=== PATIENT | male | born 1940 | race Caucasian/White ===

== ENCOUNTER 2020-12-06 11:03 | Day surgery (SDC) | payer MEDICARE ==
[~2020-12-06] VITALS: Ht 180.3 cm; Wt 80.8 kg
[~2020-12-06 11:03] MED LIST: ASPI-496 PO; ATEN25TA PO; BISA10SU4 PR; CEFU500T PO; CHOL2000 PO; CLOP75TA PO; DOXY100T PO; GLIM1TAB7 PO; HEPA50002 SQ; LISI-167 PO; LISI-170 PO; ONDA4TAB13 PO; PIPE2.255 IV; SIMV20TA19 PO; VERA120T13 PO; calcium; magnesium
[2020-12-06 11:53] VITALS: BP 125/69
[2020-12-06] MEDS ORDERED: NALOXONE 1 MG/ML, 2ML ONE (13:35)
[2020-12-06] MEDS ORDERED: MIDAZOLAM 1 MG/ML, 5ML ONE (13:35)
[2020-12-06] MEDS ORDERED: FLUMAZENIL 0.1 MG/1 ML, 5ML ONE (13:35)
[2020-12-06] MEDS ORDERED: FENTANYL PF 100 MCG/2ML ONE (13:35)
[2020-12-06] MEDS ORDERED: VISIPAQUE 270 MG/ML, 50ML BOTTLE ONE (14:57)
== END 2020-12-06 15:15 | disposition home or self-care (01) ==
LOC: OUT 11:03
PROVIDERS: ATTEND Internal Medicine Infectious Disease
DX: T83.89XA Other specified complication of genitourinary prosthetic devices, implants and grafts, initial encounter (principal); N10 Acute pyelonephritis; N99.511 Cystostomy infection; Y83.8 Other surgical procedures as the cause of abnormal reaction of the patient, or of later complication, without mention of misadventure at the time of the procedure; I10 Essential (primary) hypertension; N17.9 Acute kidney failure, unspecified; E11.9 Type 2 diabetes mellitus without complications; G47.30 Sleep apnea, unspecified; Z72.89 Other problems related to lifestyle; Z79.899 Other long term (current) drug therapy; Z79.84 Long term (current) use of oral hypoglycemic drugs; Z98.890 Other specified postprocedural states; Z85.46 Personal history of malignant neoplasm of prostate
CPT/HCPCS: 50435; 51710; 75984; 99156; 99157; C1729; C1769; J2250; J3010; Q9966; J2310

== ENCOUNTER 2021-04-10 20:48 | Inpatient (IN) | payer MEDICARE ==
[~2021-04-10] VITALS: Ht 180.3 cm; Wt 81.4 kg
--- NOTE | 2021-04-10 21:15 | NUR ---
PT C/O OF POSSIBLE UTI FROM SUPRAPUBIC CATHTER. WAS PUT ON CEFDINIR FROM . STATES FEELING BETTER BUT THEN BEGAN TO FELL WORSE. PT NOTED CLOUDY URINE AND GREENISH SCUM SO HE CALLED INFECTCIOUS DISEASE AND TOOK LABS AND WAS TOLD TO COME TO ED AND GET IV INFUSION, PT ATTACHED TO MONITORS, VSS. PT IN NAD. NBED IN LOW POSITIONO. CALL LIGHT WITHIN REACH. RAILS ENGAGED. WCTM.
--- NOTE | 2021-04-10 21:23 | NUR ---
PT GIVEN WARM BLANKETS
[2021-04-10] MEDS ORDERED: SODIUM CHLORIDE 0.9% 1,000ML IVBOLUS ONE (22:00)
[2021-04-10 22:09] LABS: BASOPHILS % (AUTO) 1 % (0-1); EOSINOPHILS % (AUTO) 3 % (1-7); LYMPHOCYTES % (AUTO) 19 % (22-44); MEAN CORPUSCULAR HEMOGLOBIN 30.2 pg (27.5-34.5); MEAN CORPUSCULAR HGB CONC 34.6 g/dL (33.2-36.2); MEAN PLATELET VOLUME 7.7 fL (7.4-10.4); MONOCYTES % (AUTO) 10 % (2-9); NEUTROPHILS % (AUTO) 67 % (42-75); PLATELET COUNT 522 x10^3/uL (130-400); RED BLOOD COUNT 3.56 x10^6/uL (4.38-5.82)
[2021-04-10 22:16] LABS: MD NO
[2021-04-10 22:18] LABS: ALBUMIN 2.9 g/dL (3.4-5.0); ANION GAP 9 mmol/L (5-15); CALCIUM 8.6 mg/dL (8.5-10.1); CHLORIDE 104 mmol/L (98-107); CREATININE 2.71 mg/dL (0.7-1.3)
[2021-04-10 22:25] LABS: MICROSCOPIC INDICATED
[2021-04-10] MEDS ORDERED: CYSTEX PO (22:51)
[2021-04-10] MEDS ORDERED: MULTIVITAMIN PO (22:53)
[2021-04-10] MEDS ORDERED: VITAMIN D PO (22:53)
[2021-04-10] MEDS ORDERED: MAGN250T8 PO (22:53)
[2021-04-10] MEDS ORDERED: ATOR10TA9 PO (22:53)
[2021-04-10] MEDS ORDERED: CRANBERRY PO (22:53)
--- NOTE | 2021-04-10 22:53 | NUR ---
PT MEDICATED PER MAR, NAD, RESTING ON GURNEY, APPEARS COMFORTABLE, DENIES ADDITIONAL QUESTIONS OR NEEDS AT THIS TIME. NO CHANGE IN CONDITION, VSS, BED IN LOWEST, RAILS ENGAGED, CALL LIGHT ON LAP, WCTM.
[2021-04-10] MEDS ORDERED: PIPERACILLIN/TAZO 3.375 GM in DEXTROSE 5% 50 ML IVPB ONE (23:00)
[2021-04-10] MEDS ORDERED: POLYETHYLENE GLYCOL 17 GM PACKET PO PRN (23:30)
[2021-04-10] MEDS ORDERED: ACETAMINOPHEN 325 MG TABLET PO PRN (23:30)
[2021-04-10] MEDS ORDERED: ONDANSETRON ODT 4 MG PO PRN (23:30)
[2021-04-10] MEDS ORDERED: BISACODYL 10 MG SUPP PR PRN (23:30)
--- NOTE | 2021-04-10 23:44 | NUR ---
GAVE REPORT TO MARTY MARSH
--- NOTE | 2021-04-11 00:10 | NUR ---
CLAY MOLDER TRANFERRING PT TO FLOOR. PT CONDITION UNCHANGED. PT IN NAD.
[2021-04-11 00:27] VITALS: BP 143/75
[2021-04-11] MEDS: SODIUM CHLORIDE 0.9% 1,000 ML IV SCH ×2 (00:32→12:50)
[2021-04-11 05:51] LABS: BASOPHILS % (AUTO) 1 % (0-1); EOSINOPHILS % (AUTO) 3 % (1-7); LYMPHOCYTES % (AUTO) 16 % (22-44); MEAN CORPUSCULAR HEMOGLOBIN 30.7 pg (27.5-34.5); MEAN CORPUSCULAR HGB CONC 35.5 g/dL (33.2-36.2); MEAN PLATELET VOLUME 7.6 fL (7.4-10.4); MONOCYTES % (AUTO) 12 % (2-9); NEUTROPHILS % (AUTO) 69 % (42-75); PLATELET COUNT 465 x10^3/uL (130-400); RED BLOOD COUNT 3.25 x10^6/uL (4.38-5.82); RED CELL DISTRIBUTION WIDTH 12.7 % (9.4-14.8)
[2021-04-11 05:56] LABS: CHLORIDE 108 mmol/L (98-107)
[2021-04-11 06:06] LABS: ANION GAP 8 mmol/L (5-15); CALCIUM 8.3 mg/dL (8.5-10.1); CREATININE 2.52 mg/dL (0.7-1.3)
[2021-04-11 06:13] LABS: MD NO
[2021-04-11 07:30] VITALS: BP 160/70
[2021-04-11] MEDS ORDERED: VERAPAMIL ER 120MG TABLET.ER ONE (07:48)
[2021-04-11] MEDS: SENNA/DOCUSATE TABLET PO SCH (07:52)
[2021-04-11] MEDS: MULTIVITAMIN 1 TABLET PO SCH (07:56)
[2021-04-11] MEDS: VERAPAMIL ER 240MG TABLET.ER PO SCH (07:56)
[2021-04-11] MEDS: MAGNESIUM OXIDE 400 MG TABLET PO SCH (07:56)
[2021-04-11] MEDS: PIPERACILLIN/TAZO 2.25 GM in SODIUM CHLORIDE 0.9% 50 ML IV SCH ×2 (07:57→15:00)
[2021-04-11 13:41] VITALS: BP 109/57
[2021-04-11 19:40] VITALS: BP 140/68
[2021-04-11] MEDS: ATORVASTATIN 20 MG TABLET PO SCH (21:17)
[2021-04-11] MEDS: PIPERACILLIN/TAZO 2.25 GM in DEXTROSE 5% 50 ML IV SCH (23:35)
[2021-04-12 00:58] VITALS: BP 130/67
[2021-04-12] MEDS: SODIUM CHLORIDE 0.9% 1,000 ML IV SCH ×2 (03:09→18:33)
[2021-04-12 06:07] LABS: BASOPHILS % (AUTO) 1 % (0-1); EOSINOPHILS % (AUTO) 4 % (1-7); LYMPHOCYTES % (AUTO) 19 % (22-44); MEAN CORPUSCULAR HEMOGLOBIN 30.8 pg (27.5-34.5); MEAN CORPUSCULAR HGB CONC 35.2 g/dL (33.2-36.2); MEAN PLATELET VOLUME 7.9 fL (7.4-10.4); MONOCYTES % (AUTO) 9 % (2-9); NEUTROPHILS % (AUTO) 68 % (42-75); PLATELET COUNT 524 x10^3/uL (130-400); RED BLOOD COUNT 3.61 x10^6/uL (4.38-5.82)
[2021-04-12 06:11] LABS: MD NO
[2021-04-12 06:18] LABS: ANION GAP 4 mmol/L (5-15); CALCIUM 8.9 mg/dL (8.5-10.1); CHLORIDE 108 mmol/L (98-107); CREATININE 2.65 mg/dL (0.7-1.3)
[2021-04-12 07:09] VITALS: BP 153/71
[2021-04-12] MEDS: PIPERACILLIN/TAZO 2.25 GM in DEXTROSE 5% 50 ML IV SCH ×3 (07:28→23:30)
[2021-04-12] MEDS: SENNA/DOCUSATE TABLET PO SCH (09:00)
[2021-04-12] MEDS: MULTIVITAMIN 1 TABLET PO SCH (10:34)
[2021-04-12] MEDS: VERAPAMIL ER 240MG TABLET.ER PO SCH (10:34)
[2021-04-12] MEDS: MAGNESIUM OXIDE 400 MG TABLET PO SCH (10:34)
[2021-04-12 14:12] VITALS: BP 112/58
[2021-04-12 16:03] VITALS: BP 172/82
[2021-04-12 17:11] LABS: % IRON SATURATION 23 % (20-55); IRON LEVEL 46 mcg/dL (65-175); TOTAL IRON BINDING CAPACITY 196 mcg/dL (250-450)
[2021-04-12 19:56] VITALS: BP 144/70
[2021-04-12] MEDS: ATORVASTATIN 20 MG TABLET PO SCH (20:30)
[2021-04-13 00:37] VITALS: BP 146/68
[2021-04-13 07:15] VITALS: BP 155/70
[2021-04-13] MEDS: PIPERACILLIN/TAZO 2.25 GM in DEXTROSE 5% 50 ML IV SCH ×3 (07:19→23:06)
[2021-04-13] MEDS: MULTIVITAMIN 1 TABLET PO SCH (09:35)
[2021-04-13] MEDS: SODIUM CHLORIDE 0.9% 1,000 ML IV SCH ×2 (09:35→23:06)
[2021-04-13] MEDS: MAGNESIUM OXIDE 400 MG TABLET PO SCH (09:35)
[2021-04-13] MEDS: SENNA/DOCUSATE TABLET PO SCH (09:35)
[2021-04-13] MEDS: VERAPAMIL ER 240MG TABLET.ER PO SCH (09:47)
[2021-04-13 12:54] VITALS: BP 129/68
[2021-04-13 19:42] VITALS: BP 132/76
[2021-04-13] MEDS: ATORVASTATIN 20 MG TABLET PO SCH (19:45)
[2021-04-14 01:15] VITALS: BP 137/80
[2021-04-14] MEDS: PIPERACILLIN/TAZO 2.25 GM in DEXTROSE 5% 50 ML IV SCH ×3 (07:17→22:59)
[2021-04-14 08:23] VITALS: BP 138/68
[2021-04-14] MEDS: VERAPAMIL ER 240MG TABLET.ER PO SCH (08:40)
[2021-04-14] MEDS: MULTIVITAMIN 1 TABLET PO SCH (08:40)
[2021-04-14] MEDS: MAGNESIUM OXIDE 400 MG TABLET PO SCH (08:41)
[2021-04-14] MEDS: SENNA/DOCUSATE TABLET PO SCH (08:42)
[2021-04-14 12:31] VITALS: BP 147/76
[2021-04-14] MEDS: SODIUM CHLORIDE 0.9% 1,000 ML IV SCH (13:01)
[2021-04-14] MEDS ORDERED: VISIPAQUE 270 MG/ML, 50ML BOTTLE ONE (16:19)
[2021-04-14 18:44] VITALS: BP 146/55
[2021-04-14] MEDS: ATORVASTATIN 20 MG TABLET PO SCH (20:42)
[2021-04-15 03:23] VITALS: BP 156/70
[2021-04-15] MEDS: SODIUM CHLORIDE 0.9% 1,000 ML IV SCH ×2 (04:12→14:53)
[2021-04-15 07:04] VITALS: BP 161/75
[2021-04-15 07:39] VITALS: BP 145/64
[2021-04-15] MEDS: PIPERACILLIN/TAZO 2.25 GM in DEXTROSE 5% 50 ML IV SCH ×2 (07:50→14:54)
[2021-04-15] MEDS: MULTIVITAMIN 1 TABLET PO SCH (08:54)
[2021-04-15] MEDS: MAGNESIUM OXIDE 400 MG TABLET PO SCH (08:55)
[2021-04-15] MEDS: VERAPAMIL ER 240MG TABLET.ER PO SCH (08:56)
[2021-04-15] MEDS: SENNA/DOCUSATE TABLET PO SCH (08:56)
[2021-04-15 12:50] VITALS: BP 146/68
[2021-04-15] MEDS ORDERED: PIPE2.255 IV (15:57)
== END 2021-04-15 17:17 | DRG 699 ==
LOC: ED 23:32 → EDIP 23:44 → 3N 04-11 00:12
PROVIDERS: ADMIT Family Medicine; ATTEND Internal Medicine
PROC: 0T9B70Z Drainage of Bladder with Drainage Device, Via Natural or Artificial Opening (ICD-10-PCS; principal; 2021-04-10)
PROC: 02HV33Z Insertion of Infusion Device into Superior Vena Cava, Percutaneous Approach (ICD-10-PCS; 2021-04-14)
PROC: B548ZZA Ultrasonography of Superior Vena Cava, Guidance (ICD-10-PCS; 2021-04-14)
PROC: 5A09357 Assistance with Respiratory Ventilation, Less than 24 Consecutive Hours, Continuous Positive Airway Pressure (ICD-10-PCS; 2021-04-14)
DX: T83.510A Infection and inflammatory reaction due to cystostomy catheter, initial encounter (principal); N18.4 Chronic kidney disease, stage 4 (severe); N10 Acute pyelonephritis; Z16.23 Resistance to quinolones and fluoroquinolones; B96.5 Pseudomonas (aeruginosa) (mallei) (pseudomallei) as the cause of diseases classified elsewhere; E11.22 Type 2 diabetes mellitus with diabetic chronic kidney disease; D63.1 Anemia in chronic kidney disease; R79.89 Other specified abnormal findings of blood chemistry; N13.9 Obstructive and reflux uropathy, unspecified; Y84.6 Urinary catheterization as the cause of abnormal reaction of the patient, or of later complication, without mention of misadventure at the time of the procedure; E78.5 Hyperlipidemia, unspecified; E86.0 Dehydration; I12.9 Hypertensive chronic kidney disease with stage 1 through stage 4 chronic kidney disease, or unspecified chronic kidney disease; Z85.46 Personal history of malignant neoplasm of prostate; Z87.891 Personal history of nicotine dependence; Z90.81 Acquired absence of spleen; Z93.59 Other cystostomy status; Z87.440 Personal history of urinary (tract) infections; Y92.89 Other specified places as the place of occurrence of the external cause
CPT/HCPCS: 36415; 36573; 80048; 81001; 82040; 83540; 83550; 83605; 84145; 85025; 87040; 87077; 87086; 87186; 96374; 99285; G0378; J2543; Q9966; C1751; J7030